=== PATIENT | female | born 1965 | race African-American/Black ===

== ENCOUNTER 2020-10-29 17:10 | Inpatient (IN) | payer OTHER ==
[2020-10-29 19:29] VITALS: BMI 37.4
[2020-10-29] MEDS ORDERED: MAG HYDROX/AL HYDROX/SIMETH 30 ML UNIT-DOSE CUP PO PRN (21:23)
[2020-10-29] MEDS ORDERED: MAGNESIUM CITRATE 300 ML BOTTLE PO PRN (21:23)
[2020-10-29] MEDS ORDERED: P-EPHED 60MG/TRIPROLIDI 2.5MG TABLET PO PRN (21:23)
[2020-10-29] MEDS ORDERED: MAGNESIUM HYDROX 2400MG/30ML ORAL SUSPENSION 30 ML CUP PO PRN (21:23)
[2020-10-29] MEDS ORDERED: ACETAMINOPHEN 325 MG TABLET (FP) PO PRN (21:23)
[2020-10-29] MEDS ORDERED: LOPERAMIDE HCL 2 MG CAPSULE PO PRN (21:23)
[2020-10-29] MEDS ORDERED: guaiFENesin 200 MG/10 ML 10 ML UNIT-DOSE CUPS PO PRN (21:23)
[2020-10-29] MEDS ORDERED: IBUPROFEN 400 MG TABLET (FP) PO PRN (21:23)
[2020-10-29] MEDS ORDERED: NICOTINE POLACRILEX 2 MG GUM BC PRN (21:23)
[2020-10-30] MEDS ORDERED: TUBERCULIN PPD 5 TU/0.1ML VIAL ID ONE ×2 (01:24→07:50)
[2020-10-30] MEDS: MELATONIN 5 MG TABLETS PO SCH ×2 (01:28→22:58)
[2020-10-30] MEDS: GABAPENTIN 300 MG CAPSULE PO SCH ×4 (01:28→22:58)
[2020-10-30] MEDS: THIAMINE HCL 100 MG TABLET (FP) PO SCH ×2 (01:29→22:58)
[2020-10-30] MEDS: hydrOXYzine PAMOATE 25 MG CAPSULE (FP) PO SCH ×6 (01:29→22:59)
[2020-10-30] MEDS: PRENATAL VITAMINS W/ FOLIC ACID TABLET (FP) PO SCH (10:23)
[2020-10-30] MEDS: NICOTINE 7 MG/24 HOURS TOPICAL PATCH TD SCH (10:24)
[2020-10-30 11:42] LABS: HEMATOCRIT 37.4 % (32.4-45.2); HEMOGLOBIN 12.3 GM/dL (10.7-15.3); MCH 27.7 pg (25.7-33.7); MCHC 32.9 g/dl (32.0-36.0); MEAN CELL VOLUME 84.4 fl (80-96); MEAN PLT VOLUME 8.8 fl (7.5-11.1); PLATELET COUNT 281 10^3/uL (134-434); RBC 4.43 M/mm3 (3.60-5.2); WHITE BLOOD COUNT 5.1 K/mm3 (4.0-10.0)
[2020-10-30 11:44] LABS: BLOOD UREA NITROGEN 16.7 mg/dL (7-18); CALCIUM 8.2 mg/dL (8.5-10.1)
[2020-10-30 11:45] LABS: ALBUMIN 2.9 g/dl (3.4-5.0)
[2020-10-30 11:48] LABS: CREATININE 0.8 mg/dL (0.55-1.3)
[2020-10-30 11:49] LABS: BILIRUBIN,TOTAL 0.4 mg/dL (0.2-1); TOT PROT 5.9 g/dl (6.4-8.2)
[2020-10-30] MEDS ORDERED: diphenhydrAMINE HCL 25 MG CAPSULE (FP) PO SCH (22:00)
[2020-10-30] MEDS: HALOPERIDOL 5 MG TABLET PO SCH (22:58)
[2020-10-31] MEDS: GABAPENTIN 300 MG CAPSULE PO SCH ×2 (06:58→14:44)
[2020-10-31] MEDS: hydrOXYzine PAMOATE 25 MG CAPSULE (FP) PO SCH ×4 (06:58→17:21)
[2020-10-31 07:32] VITALS: BP 129/69; PULSE 64; TEMP 97.4
[2020-10-31] MEDS: PRENATAL VITAMINS W/ FOLIC ACID TABLET (FP) PO SCH (10:52)
[2020-10-31] MEDS: HALOPERIDOL 5 MG TABLET PO SCH (10:52)
[2020-10-31] MEDS: NICOTINE 7 MG/24 HOURS TOPICAL PATCH TD SCH (10:53)
== END 2020-10-31 19:15 | disposition left against medical advice (07) | DRG 770 ==
LOC: YASAS 17:10 → Y5N 22:11
PROVIDERS: ADMIT Allergy & Immunology; ATTEND Allergy & Immunology
PROC: HZ42ZZZ Group Counseling for Substance Abuse Treatment, Cognitive-Behavioral (ICD-10-PCS; principal; 2020-10-29)
DX: F10.20 Alcohol dependence, uncomplicated (principal); F14.20 Cocaine dependence, uncomplicated; F12.20 Cannabis dependence, uncomplicated; F16.10 Hallucinogen abuse, uncomplicated; F17.210 Nicotine dependence, cigarettes, uncomplicated; F90.9 Attention-deficit hyperactivity disorder, unspecified type; F39 Unspecified mood [affective] disorder; M54.5 Low back pain; G89.29 Other chronic pain; Z56.0 Unemployment, unspecified
CPT/HCPCS: 36415; 80053; 81025; 85027; 86780; 90853; C9803; U0003; U0005

== ENCOUNTER 2024-06-10 11:33 | Inpatient (IN) | payer OTHER ==
[2024-06-10 12:02] VITALS: BMI 25.7
[2024-06-10] MEDS ORDERED: NICOTINE POLACRILEX 2 MG LOZENGE BC PRN (12:49)
[2024-06-10] MEDS ORDERED: MAGNESIUM HYDROX 2400MG/30ML ORAL SUSPENSION 30 ML CUP PO PRN (12:49)
[2024-06-10] MEDS ORDERED: IBUPROFEN 400 MG TABLET (FP) PO PRN (12:49)
[2024-06-10] MEDS ORDERED: BENZONATATE 200 MG CAPSULE PO PRN (12:49)
[2024-06-10] MEDS ORDERED: BENZOCAINE/MENTHOL (CHLORASEPTIC ) LOZENGE MM PRN (12:49)
[2024-06-10] MEDS ORDERED: DICYCLOMINE HCL 10 MG CAPSULE PO PRN (12:49)
[2024-06-10] MEDS ORDERED: POLYETHYLENE GLYCOL (HEALTHYLAX) 3350 17 GM PACKET PO PRN (12:49)
[2024-06-10] MEDS ORDERED: NALOXONE (NARCAN) HCL 4 MG/0.1 ML SPRAY NS PRN (12:49)
[2024-06-10] MEDS ORDERED: guaiFENesin 600 MG TABLET.ER (FP) PO PRN (12:49)
[2024-06-10] MEDS ORDERED: ACETAMINOPHEN 325 MG TABLET (FP) PO PRN (12:49)
[2024-06-10] MEDS ORDERED: BISMUTH SUBSALICYLATE 262 MG/15 ML BTL PO PRN (12:49)
[2024-06-10] MEDS ORDERED: MAG HYDROX/AL HYDROX/SIMETH 30 ML UNIT-DOSE CUP PO PRN (12:49)
[2024-06-10] MEDS ORDERED: LOPERAMIDE HCL 2 MG CAPSULE PO PRN (12:49)
[2024-06-10] MEDS ORDERED: ONDANSETRON *ODT* 4 MG TABLET SL PRN (12:49)
[2024-06-10] MEDS: NALTREXONE HCL 50 MG TABLET PO ONE (15:55)
[2024-06-10] MEDS: METHOCARBAMOL 500 MG TABLET PO PRN (20:59)
[2024-06-10] MEDS: IBUPROFEN 600 MG TABLET (FP) PO PRN (22:27)
[2024-06-10] MEDS: traZODone HCL 50 MG TABLET (FP) PO PRN (22:27)
[2024-06-10] MEDS: MELATONIN 5 MG TABLETS PO SCH (22:28)
[2024-06-10] MEDS: hydrOXYzine PAMOATE 25 MG CAPSULE (FP) PO PRN (22:28)
[2024-06-10] MEDS: THIAMINE 100 MG TABLET PO SCH (22:29)
[2024-06-11] MEDS ORDERED: chlordiazePOXIDE HCL 25 MG CAPSULE PO PRN (09:27)
[2024-06-11] MEDS: PRENATAL VITAMINS W/ FOLIC ACID TABLET (FP) PO SCH (10:03)
[2024-06-11] MEDS: NALTREXONE HCL 50 MG TABLET PO SCH (10:04)
[2024-06-11] MEDS: chlordiazePOXIDE HCL 25 MG CAPSULE PO SCH (10:04)
[2024-06-11] MEDS: NICOTINE 7 MG/24 HOURS TOPICAL PATCH TD SCH (10:06)
[2024-06-11 11:36] LABS: POTASSIUM 3.9 mmol/L (3.5-5.1)
[2024-06-11 11:41] LABS: BLOOD UREA NITROGEN 16.6 mg/dL (7-18)
[2024-06-11 11:42] LABS: ALBUMIN 3.7 g/dl (3.4-5.0); CALCIUM 9.3 mg/dL (8.5-10.1)
[2024-06-11 11:46] LABS: BILIRUBIN,TOTAL 0.8 mg/dL (0.2-1)
[2024-06-11 11:47] LABS: TOT PROT 6.9 g/dl (6.4-8.2)
[2024-06-11 12:10] LABS: HEMATOCRIT 42.8 % (32.4-45.2); HEMOGLOBIN 14.1 GM/dL (10.7-15.3); MCH 28.9 pg (25.7-33.7); MCHC 32.9 g/dl (32.0-36.0); MEAN CELL VOLUME 87.9 fl (80-96); MEAN PLT VOLUME 8.4 fl (7.5-11.1); PLATELET COUNT 330 10^3/uL (134-434); RBC 4.87 M/mm3 (3.60-5.2); RDW 14.3 % (11.6-15.6); WHITE BLOOD COUNT 4.1 K/mm3 (4.0-10.0)
[2024-06-11] MEDS ORDERED: traZODone HCL 50 MG TABLET (FP) PO PRN (14:49)
[2024-06-11] MEDS: PALIPERIDONE 9 MG TABELT ER PO SCH (15:32)
[2024-06-11] MEDS: GABAPENTIN 300 MG CAPSULE PO SCH (22:52)
[2024-06-12] MEDS: chlordiazePOXIDE HCL 25 MG CAPSULE PO SCH (05:50)
[2024-06-12] MEDS: PALIPERIDONE 9 MG TABELT ER PO SCH (10:49)
[2024-06-12 21:28] VITALS: RESP 18
[2024-06-13] MEDS: chlordiazePOXIDE HCL 10 MG CAPSULE PO SCH (05:45)
[2024-06-13] MEDS ORDERED: ALBUTEROL SO4 HFA INHALER IH PRN (09:22)
[2024-06-13] MEDS: LOSARTAN POTASSIUM 50 MG TABLET PO ONE (10:09)
[2024-06-13 10:49] VITALS: BP 127/67; PULSE 65; TEMP 97.7
[2024-06-14] MEDS ORDERED: chlordiazePOXIDE HCL 10 MG CAPSULE PO SCH (05:00)
[2024-06-15] MEDS ORDERED: chlordiazePOXIDE HCL 10 MG CAPSULE PO ONE (05:00)
== END 2024-06-13 10:05 | disposition home or self-care (01) | DRG 774 ==
LOC: YASAS 11:33 → Y6N 14:46
PROVIDERS: ADMIT Allergy & Immunology; ATTEND Allergy & Immunology
PROC: HZ2ZZZZ Detoxification Services for Substance Abuse Treatment (ICD-10-PCS; principal; 2024-06-10)
DX: F10.230 Alcohol dependence with withdrawal, uncomplicated (principal); F14.20 Cocaine dependence, uncomplicated; F16.20 Hallucinogen dependence, uncomplicated; F12.20 Cannabis dependence, uncomplicated; F17.210 Nicotine dependence, cigarettes, uncomplicated; F25.1 Schizoaffective disorder, depressive type; F19.282 Other psychoactive substance dependence with psychoactive substance-induced sleep disorder; F19.24 Other psychoactive substance dependence with psychoactive substance-induced mood disorder; F39 Unspecified mood [affective] disorder; F90.9 Attention-deficit hyperactivity disorder, unspecified type; J45.20 Mild intermittent asthma, uncomplicated; M54.50 Low back pain, unspecified; G89.29 Other chronic pain; Z88.0 Allergy status to penicillin
CPT/HCPCS: 36415; 80053; 80305; 80307; 82550; 84484; 85027; 86780; 93005; 93010